=== PATIENT | female | born 1975 | race African-American/Black ===

== ENCOUNTER 2019-11-27 17:04 | Emergency (ER) | payer OTHER ==
[~2019-11-27] VITALS: Ht 160 cm; Wt 95.0 kg
[2019-11-27 17:12] VITALS: BP 137/85
[2019-11-27] MEDS ORDERED: LIDOCAINE HCL 1% 20ML VIAL (Pyxis) INJ INFIL ONE (17:30)
== END 2019-11-27 19:33 | disposition home or self-care (01) ==
LOC: ER 17:04
DX: S01.81XA Laceration without foreign body of other part of head, initial encounter (principal); X58.XXXA Exposure to other specified factors, initial encounter; Y93.89 Activity, other specified; Y92.89 Other specified places as the place of occurrence of the external cause; Y99.8 Other external cause status
CPT/HCPCS: 12013; 70450; 70486; 99285; J3490

== ENCOUNTER 2019-12-08 13:39 | Emergency (ER) | payer OTHER ==
[~2019-12-08] VITALS: Ht 152.4 cm; Wt 102.0 kg
[2019-12-08 13:46] VITALS: BP 122/81
== END 2019-12-08 16:25 | disposition left against medical advice (07) ==
LOC: ER 13:39
DX: Z53.21 Procedure and treatment not carried out due to patient leaving prior to being seen by health care provider (principal)

== ENCOUNTER 2019-12-09 11:21 | Emergency (ER) | payer OTHER ==
[~2019-12-09] VITALS: Ht 157.5 cm; Wt 65.7 kg
[2019-12-09 13:27] VITALS: BP 131/74
== END 2019-12-09 13:28 | disposition home or self-care (01) ==
LOC: ER 11:21
DX: S51.812D Laceration without foreign body of left forearm, subsequent encounter (principal); X58.XXXD Exposure to other specified factors, subsequent encounter
CPT/HCPCS: 99281